=== PATIENT | male | born 1965 | race Hispanic/Latino ===

== ENCOUNTER 2020-08-15 13:29 | Emergency (ER) | payer BC, OTHER ==
[2020-08-15 14:36] LABS: RAPID GROUP A STREP NEGATIVE (NEGATIVE)
[2020-08-15] MEDS ORDERED: CEFTRIAXONE SODIUM 1 GM ONE (15:34)
[2020-08-15] MEDS ORDERED: LIDOCAINE HCL-MPF 1% 2ML VIAL ONE (15:35)
== END 2020-08-15 15:48 | disposition home or self-care (01) ==
LOC: EDH 13:29
DX: J18.1 Lobar pneumonia, unspecified organism (principal); Z20.828 Contact with and (suspected) exposure to other viral communicable diseases; Z88.6 Allergy status to analgesic agent; Z90.49 Acquired absence of other specified parts of digestive tract
CPT/HCPCS: 71045; 87426; 87804 ×2; 87880; 96374; 99284; J0696; J3490; U0003